=== PATIENT | male | born 1975 | race Caucasian/White ===

== ENCOUNTER → 2023-02-13 | Outpatient (CLI) | payer BC ==
--- NOTE | 2023-02-13 10:09 | XR ---
EXAMINATION TYPE: XR skull complete DATE OF EXAM: 02/13/2023 COMPARISON: NONE HISTORY: 47-year-old male D16.4 Right skull mass TECHNIQUE: 4 views FINDINGS: No calvarial fracture seen. Normal appearance to the calvarial sutures. The orbits appear symmetric. Maxillary, sphenoid, ethmoid, and frontal sinuses appear pneumatized. Scattered dental amalgam. There appears to be unerupted maxillary and mandibular molars. IMPRESSION: Unerupted maxillary and mandibular molars. No specific radiographic abnormality of the skull is other bower identified.
== END ==
LOC: RADXRMAIN 08:20
PROVIDERS: ATTEND Family Medicine
DX: D16.4 Benign neoplasm of bones of skull and face (principal)
CPT/HCPCS: 70260

== ENCOUNTER → 2023-03-02 | Outpatient (CLI) | payer BC ==
--- NOTE | 2023-03-02 19:12 | CT ---
EXAMINATION TYPE: CT brain wo/w con CT DLP: 2369.8 mGycm, Automated exposure control for dose reduction was used. DATE OF EXAM: 03/02/2023 5:39 PM COMPARISON: None. CLINICAL INDICATION:Male, 47 years old with history of R22.0 SWELLING MASS AND LUMP HEAD; PHH, Cyst l chelita bump under right eye x 1 month. TECHNIQUE: Axial CT images of the brain were obtained with coronal and sagittal reformats created and reviewed. Contrast used:100 cc mL of Isovue 300 without and with IV Contrast, Oral contrast used: none. FINDINGS: Extra-axial spaces: No abnormal extra-axial fluid collections. Ventricular system: Within normal limits Cerebral parenchyma: No acute intraparenchymal hemorrhage or mass effect. The fishman-white junction is well differentiated. No abnormal enhancement is seen after the administration of intravenous contras t. Cerebellum: Unremarkable. Mass effect: No evidence of midline shift. Intracranial vasculature: unremarkable Soft tissues: Palpable marker correlates with soft tissue lesion measuring by 11 x 16 mm measuring 30 Hounsfield units on noncontrast imaging and 69 Hounsfield units on postcontrast imaging. No addition al suspicious lesions. No osseous erosion. Lesion does abut the the zygomatic arch. Calvarium/osseous structures: No depressed skull fracture. Paranasal sinuses and mastoid air cells: Clear. Visualized orbits: Orbital contents are intact. IMPRESSION: 1. Enhancing soft tissue mass measuring 16 x 11 mm near the zygomatic arch corresponding with palpab le abnormality. Consider tissue swelling for definitive diagnosis.. Finding could represent a lymph n ode versus other etiologies with malignancy not entirely excluded.. 2. No acute intracranial process.
== END | disposition home or self-care (01) ==
LOC: RADCTMAIN 17:07
PROVIDERS: ATTEND Family Medicine
DX: R22.0 Localized swelling, mass and lump, head (principal)
CPT/HCPCS: 70470; Q9967

== ENCOUNTER 2024-08-18 08:11 | Day surgery (SDC) | payer BC ==
[2024-08-18 08:46] VITALS: RESP 18; TEMP 97.7
[2024-08-18] MEDS: LACTATED RINGERS 1,000 ML IV SCH (08:51)
[2024-08-18] MEDS: IV FLUID CONTINUATION 1,000 ML IV ONE (08:52)
[2024-08-18] MEDS ORDERED: PROPOFOL 10 MG/ML 20 ML VIAL IV ONE (09:14)
--- NOTE | 2024-08-18 09:27 | P.PCN ---
Date of Procedure: 08/18/24 Preoperative Diagnosis: Screening Postoperative Diagnosis: Diverticulosis Procedure(s) Performed: Colonoscopy Anesthesia: MAC Surgeon: Vanessa Wisdom Pathology: none sent Condition: stable Disposition: same day Indications for Procedure: 49-year-old male presents today for screening colonoscopy. Denies any blood in his stool. Denies family history of colon cancer. Risks, benefits and alternatives were provided to the patient. All questions answered Operative Findings: Diverticulosis Description of Procedure: The patient was brought to the endoscopy suite and placed in left lateral decubitus position and adequate sedation was achieved using conscious sedation. Digital rectal exam was performed and mild internal hemorrhoids were palpated. An endoscope was then placed in the rectum and advanced to the cecum as identified by landmarks including the appendiceal orifice and the ileocecal valve. The prep was good. The colonoscope was then slowly withdrawn, examining for any mucosal abnormalities. The cecum, ascending, transverse, descending and sigmoid colon were visualized adequately. There were no large neoplastic lesions noted throughout the colon. No obvious polyps were noted throughout the colon. Mild amount of diverticulosis noted scattered throughout the colon. Hemostasis was maintained. Retroflexion was performed in the rectum and mild internal hemorrhoids. Excess air was removed, the colonoscope withdrawn and the procedure terminated. The patient was then transferred to the recovery unit in stable condition. Repeat colonoscopy should be performed in 10 years.
[2024-08-18 09:34] VITALS: BP 92/58; PULSE 75
== END 2024-08-18 10:31 | disposition home or self-care (01) ==
LOC: ORWHC2ENDO 08:11
PROVIDERS: ATTEND Surgery
DX: Z12.11 Encounter for screening for malignant neoplasm of colon (principal); K57.30 Diverticulosis of large intestine without perforation or abscess without bleeding
CPT/HCPCS: 45378; J2704